=== PATIENT | female | born 1955 | race Caucasian/White ===

== ENCOUNTER 2018-08-25 13:19 | Outpatient (CLI) | payer OTHER ==
--- NOTE | 2018-08-25 14:09 | MMO ---
Bilateral MAMMO Bilat Screen [facility]. CLINICAL HISTORY: Patient is 62 years old and is seen for screening. The patient has no family history of breast cancer. The patient has no personal history of cancer. The patient has a history of left Stereotatic Biopsy in March, - benign, left Ultrasound Guided Core Biopsy in 2008 - benign and bilateral Breast reduction in 2002. VIEWS: The views performed were: bilateral craniocaudal with tomosynthesis and bilateral mediolateral oblique with tomosynthesis. FILMS COMPARED: The present examination has been compared to prior imaging studies performed at [facility] on 03/23/2008, 09/05/2008 and 03/20/2009, and at [facility] on 05/10/2005, 11/20/2005 and 01/19/2007. MAMMOGRAM FINDINGS: There are scattered fibroglandular densities. There are benign appearing calcifications seen in both breasts. There are also vascular calcifications. There are no suspicious masses, suspicious calcifications, or new areas of architectural distortion. IMPRESSION: THERE IS NO MAMMOGRAPHIC EVIDENCE OF MALIGNANCY. A ROUTINE FOLLOW-UP MAMMOGRAM IN 1 YEAR IS RECOMMENDED. THE RESULTS OF THIS EXAM WERE SENT TO THE PATIENT. ACR BI-RADS Category 2 - Benign finding MAMMOGRAPHY NOTE: 1. A negative mammogram report should not delay a biopsy if a dominant of clinically suspicious mass is present. 2. Approximately 10% to 15% of breast cancers are not detected by mammography. 3. Adenosis and dense breasts may obscure an underlying neoplasm.
--- NOTE | 2018-08-25 15:00 | BD ---
BONE DENSITOMETRY USING DEXA: Date: 08/25/18 HISTORY: Postmenopausal screening for osteoporosis. FINDINGS: Lumbar Spine: BMD (g/cm2) L1 0.587 T-Score: -3.7 Z-Score: -2.2 L2 0.615 T-Score: -3.8 Z-Score: -2.2 L3 0.650 T-Score: -3.9 Z-Score: -2.3 L4 0.827 T-Score: -2.1 Z-Score: -0.4 L1-L4 0.678 T-Score: -3.4 Z-Score: -1.8 Femoral Neck: 0.458 T-Score: -3.5 Z-Score: -2.1 Total Femur: 0.573 T-Score: -3.0 Z-Score: -1.9 IMPRESSION: Osteoporosis. POS: [facility]
== END 2018-08-25 13:20 | disposition home or self-care (01) ==
LOC: BICMAMMO 13:19
PROVIDERS: ATTEND Family Medicine
DX: Z12.31 Encounter for screening mammogram for malignant neoplasm of breast (principal); Z13.820 Encounter for screening for osteoporosis; M81.0 Age-related osteoporosis without current pathological fracture
CPT/HCPCS: 77063; 77067; 77080

== ENCOUNTER 2019-10-19 09:19 | Outpatient (CLI) | payer OTHER ==
--- NOTE | 2019-10-19 09:54 | BD ---
EXAM: DEXA bone density examination HISTORY: 63-year-old postmenopausal female for screening COMPARISON: None FINDINGS: L1--bone mineral density 0.675 g/sq cm; T score -2.9 L2--bone mineral density 0.646 g/sq cm; T score -2.5 L3--bone mineral density 0.738 g/sq cm; T score -3.1 L4--bone mineral density 0.907 g/sq cm; T score -1.4 Total L1-L4--bone mineral density 0.949 g/sq cm; T score -2.7 Left femoral neck--bone mineral density0.503; T score -3.1 Total proximal left femur--bone mineral density 0.616; T score -2.7 IMPRESSION: Osteoporosis. When compared to the prior examination, the bone density in the hip has inc reased approximately 10% and the bone density in the hip is increased approximately 7%.
--- NOTE | 2019-10-19 10:05 | MMO ---
Bilateral MAMMO Bilat Screen [facility]. CLINICAL HISTORY: Patient is 63 years old and is seen for screening. The patient has no family history of breast cancer. The patient has no personal history of cancer. The patient has a history of left Stereotatic Biopsy in March, - benign, left Ultrasound Guided Core Biopsy in 2008 - benign and bilateral Breast reduction in 2002. VIEWS: The views performed were: bilateral craniocaudal with tomosynthesis and bilateral mediolateral oblique with tomosynthesis. FILMS COMPARED: The present examination has been compared to prior imaging studies performed at [facility] on 07/06/2015 and 10/22/2016, and at [facility] on 03/20/2009 and 08/25/2018. This study has been interpreted with the assistance of computer-aided detection. MAMMOGRAM FINDINGS: There are scattered fibroglandular densities. There are stable benign appearing calcifications seen in both breasts. There are no suspicious masses, suspicious calcifications, or new areas of architectural distortion. IMPRESSION: THERE IS NO MAMMOGRAPHIC EVIDENCE OF MALIGNANCY. A ROUTINE FOLLOW-UP MAMMOGRAM IN 1 YEAR IS RECOMMENDED. THE RESULTS OF THIS EXAM WERE SENT TO THE PATIENT. ACR BI-RADS Category 2 - Benign finding MAMMOGRAPHY NOTE: 1. A negative mammogram report should not delay a biopsy if a dominant of clinically suspicious mass is present. 2. Approximately 10% to 15% of breast cancers are not detected by mammography. 3. Adenosis and dense breasts may obscure an underlying neoplasm. Reported by: LEO SIERRA MD Electonically Signed: [id number]
== END 2019-10-19 09:20 | disposition home or self-care (01) ==
LOC: BICMAMMO 09:19
PROVIDERS: ATTEND Internal Medicine Rheumatology
DX: Z12.31 Encounter for screening mammogram for malignant neoplasm of breast (principal); M81.0 Age-related osteoporosis without current pathological fracture; Z91.89 Other specified personal risk factors, not elsewhere classified; Z98.890 Other specified postprocedural states
CPT/HCPCS: 77063; 77067; 77080

== ENCOUNTER 2020-12-12 09:51 | Outpatient (CLI) | payer OTHER, MEDICARE | END 2020-12-12 09:52 | disposition home or self-care (01) | LOC: BICMAMMO 09:51 | PROVIDERS: ATTEND Nurse Practitioner Family | DX: Z12.31 Encounter for screening mammogram for malignant neoplasm of breast (principal); M81.0 Age-related osteoporosis without current pathological fracture; Z91.89 Other specified personal risk factors, not elsewhere classified; Z98.82 Breast implant status | CPT/HCPCS: 77063; 77067; 77080 ==

== ENCOUNTER 2021-12-27 13:40 | Outpatient (CLI) | payer MEDICARE | END 2021-12-27 13:41 | disposition home or self-care (01) | LOC: BICMAMMO 13:40 | PROVIDERS: ATTEND Nurse Practitioner Family | DX: Z12.31 Encounter for screening mammogram for malignant neoplasm of breast (principal); M81.0 Age-related osteoporosis without current pathological fracture; Z98.890 Other specified postprocedural states; Z91.89 Other specified personal risk factors, not elsewhere classified | CPT/HCPCS: 77063; 77067; 77080 ==

== ENCOUNTER 2022-05-22 06:52 | Outpatient (CLI) | payer MEDICARE | END 2022-05-22 06:53 | disposition home or self-care (01) | LOC: BICULT 06:52 | PROVIDERS: ATTEND Nurse Practitioner Family | DX: R59.0 Localized enlarged lymph nodes (principal) | CPT/HCPCS: 76536 ==

== ENCOUNTER 2022-06-28 07:47 | Outpatient (CLI) | payer MEDICARE ==
[2022-06-28] MEDS ORDERED: Iopamidol 370 76% 100 ML VIAL ONE (12:25)
== END 2022-06-28 07:48 | disposition home or self-care (01) ==
LOC: CT 07:47
PROVIDERS: ATTEND Physician Assistant Medical
DX: R10.84 Generalized abdominal pain (principal); K59.00 Constipation, unspecified; R11.0 Nausea; K57.32 Diverticulitis of large intestine without perforation or abscess without bleeding
CPT/HCPCS: 74177; 82565; Q9967

== ENCOUNTER 2022-07-01 20:01 | Inpatient (IN) | payer MEDICARE ==
[2022-07-01 20:21] LABS: #Eosinphils 0.1 thou/uL (0.0-0.7); #Monocytes 1.2 thou/uL (0.11-0.59); %Basophils 0.2 % (0.0-1.0); %Eosinophils 0.5 % (0.0-10.0); %Lymphocytes 6.8 % (21.0-51.0); %Monocytes 7.8 % (0.0-10.0); %Neutrophils 84.8 % (42.0-75.0); Hemoglobin 14.1 g/dL (12.0-16.0); Mean Corpuscular HGB CONC 33.2 g/dL (32.0-36.0); Mean Corpuscular Volume 93.6 fl (78.0-98.0); Mean Platelet Volume 6.9 fL (7.4-10.4); Platelet Count 581 10x3/uL (130-400); RBC Distribution Width 10.9 % (11.5-14.5); Red Blood Cell (RBC) Count 4.55 mill/uL (4.20-5.40); White Blood Cell (WBC) Count 15.4 10x3/uL (4.8-10.8)
[2022-07-01 20:41] LABS: ALT (SGPT) 10 U/L (8-55); AST (SGOT) 13 U/L (5-34); Albumin 4.1 g/dL (3.4-4.8); Alkaline Phosphatase 81 U/L (40-110); Anion Gap 21 mmol/L (10-20); BUN (Urea Nitrogen) 11 mg/dL (9.8-20.1); Bilirubin, Total 0.6 mg/dL (0.2-1.2); Calc. Creatinine Clearance 0 mL/min (70-130); Calcium 9.5 mg/dL (7.8-10.44); Carbon Dioxide 20 mmol/L (23-31); Chloride 97 mmol/L (98-107); Estimated GFR 94; Globulin 3.9 g/dL (2.4-3.5); Glucose 149 mg/dL (80-115); Lipase 13 U/L (8-78); Potassium 3.6 mmol/L (3.5-5.1); Sodium 134 mmol/L (136-145)
[2022-07-01] MEDS ORDERED: Morphine 4 MG/ML VIAL ONE (21:19)
[2022-07-01] MEDS ORDERED: Ondansetron PF 4 MG/2 ML Vial ONE (21:19)
[2022-07-01] MEDS ORDERED: Vancomycin 1 GM/200 ML (FROZEN) BAG ONE (22:02)
[2022-07-01 22:07] LABS: Bilirubin Negative (Negative); Blood, Urine Negative (Negative); Clarity Clear (Clear); Glucose, Urine (Dipstick) Normal (Negative); Ketone, Urine Greater than 150 mg/dL (Negative); Leukocyte 75 Leu/uL (Negative); Nitrite Negative (Negative); Protein, Urine (Dipstick) 70 mg/dL (Neg-Trace); RBC/HPF 0-3 HPF (0-3); Specific Gravity, Urine 1.031 (1.002-1.036); Squamous Epithelial 0-3 HPF (0-3); Urobilinogen 3 mg/dL (Less than 2); pH, Urine 5.5 (5.0-9.0)
[2022-07-01 22:10] LABS: Bacteria/HPF 1+ HPF (None Seen)
[2022-07-01] MEDS ORDERED: Lactated Ringer's 1,000 ML IV SCH (23:15)
[2022-07-01] MEDS ORDERED: Sodium Chloride 0.9% 1,000 ML IV SCH (23:30)
[2022-07-02] MEDS ORDERED: cefTRIAXone\\ROCEPHIN 1 GM VIAL ONE (01:11)
[2022-07-02] MEDS: cefTRIAXone\\ROCEPHIN 1 GM in Sodium Chloride 0.9% 100 ML IVPB SCH ×2 (01:21→23:38)
[2022-07-02] MEDS ORDERED: metroNIDAZOLE 500 MG/100 ML BAG ONE ×2 (01:49→07:30)
[2022-07-02] MEDS: metroNIDAZOLE 500 MG in Premix Bag 1 BAG IVPB SCH ×3 (02:09→17:36)
[2022-07-02] MEDS ORDERED: Morphine 4 MG/ML VIAL ONE (04:17)
[2022-07-02 04:19] LABS: #Basophils 0.1 thou/uL (0.0-0.2); #Eosinphils 0.1 thou/uL (0.0-0.7); #Lymphocytes 1.4 thou/uL (1.20-3.40); #Monocytes 1.3 thou/uL (0.11-0.59); #Neutrophils 7.9 thou/uL (1.40-6.50); %Basophils 0.8 % (0.0-1.0); %Eosinophils 1.2 % (0.0-10.0); %Lymphocytes 12.5 % (21.0-51.0); %Monocytes 12.4 % (0.0-10.0); %Neutrophils 73.1 % (42.0-75.0); Hemoglobin 11.5 g/dL (12.0-16.0); Mean Corpuscular HGB CONC 33.2 g/dL (32.0-36.0); Mean Corpuscular Volume 93.4 fl (78.0-98.0); Platelet Count 505 10x3/uL (130-400); RBC Distribution Width 10.9 % (11.5-14.5); Red Blood Cell (RBC) Count 3.72 mill/uL (4.20-5.40); White Blood Cell (WBC) Count 10.8 10x3/uL (4.8-10.8)
[2022-07-02] MEDS: Morphine 4 MG/ML VIAL SLOW IVP PRN ×2 (04:21→15:56)
[2022-07-02 04:39] LABS: Anion Gap 13 mmol/L (10-20); BUN (Urea Nitrogen) 8 mg/dL (9.8-20.1); Calc. Creatinine Clearance 0 mL/min (70-130); Calcium 8.3 mg/dL (7.8-10.44); Carbon Dioxide 21 mmol/L (23-31); Chloride 104 mmol/L (98-107); Estimated GFR 102; Glucose 81 mg/dL (80-115); Potassium 3.2 mmol/L (3.5-5.1); Sodium 135 mmol/L (136-145)
[2022-07-02 05:09] LABS: Bilirubin Negative (Negative); Blood, Urine Negative (Negative); Clarity Clear (Clear); Glucose, Urine (Dipstick) Normal (Negative); Ketone, Urine 150 mg/dL (Negative); Leukocyte Negative Leu/uL (Negative); Nitrite Negative (Negative); Protein, Urine (Dipstick) 20 mg/dL (Neg-Trace); Specific Gravity, Urine 1.029 (1.002-1.036)
[2022-07-02] MEDS ORDERED: metroNIDAZOLE 500 MG in Premix Bag 1 BAG IVPB SCH (06:00)
[2022-07-02] MEDS: Levothyroxine Sodium 75 MCG TAB PO SCH (06:20)
[2022-07-02] MEDS ORDERED: Lisinopril 10 MG TAB ONE (07:28)
[2022-07-02] MEDS ORDERED: Ondansetron PF 4 MG/2 ML Vial ONE (07:29)
[2022-07-02] MEDS: Ondansetron PF 4 MG/2 ML Vial IVP PRN (07:39)
[2022-07-02] MEDS ORDERED: PRUCALOPRIDE SUCCINATE 2 MG PO SCH (08:00)
[2022-07-02] MEDS: Lisinopril 10 MG TAB PO SCH (08:05)
[2022-07-02] MEDS ORDERED: Potassium Chloride 20 MEQ TAB PO SCH (09:00)
[2022-07-02] MEDS ORDERED: Iopamidol-370 76% 500 ML 1 ML ONE (09:24)
[2022-07-02] MEDS ORDERED: Potassium Chloride 20 MEQ TAB ONE (09:51)
[2022-07-02] MEDS: Lactated Ringer's 1,000 ML IV SCH ×2 (10:54→18:47)
[2022-07-02 15:38] VITALS: BMI 27.1
[2022-07-02] MEDS ORDERED: Acetaminophen 325 MG TAB PO PRN (20:29)
[2022-07-03] MEDS: metroNIDAZOLE 500 MG in Premix Bag 1 BAG IVPB SCH ×3 (00:29→16:42)
[2022-07-03] MEDS: Lactated Ringer's 1,000 ML IV SCH ×3 (04:21→23:55)
[2022-07-03 06:39] LABS: #Eosinphils 0.3 thou/uL (0.0-0.7); #Neutrophils 6.2 thou/uL (1.40-6.50); %Basophils 0.1 % (0.0-1.0); %Eosinophils 3.7 % (0.0-10.0); %Lymphocytes 11.3 % (21.0-51.0); %Monocytes 12.3 % (0.0-10.0); %Neutrophils 72.7 % (42.0-75.0); Hemoglobin 12.2 g/dL (12.0-16.0); Mean Corpuscular HGB CONC 32.5 g/dL (32.0-36.0); Mean Corpuscular Hemoglobin 30.9 pg (27.0-31.0); Mean Platelet Volume 7.1 fL (7.4-10.4); Platelet Count 522 10x3/uL (130-400); Red Blood Cell (RBC) Count 3.94 mill/uL (4.20-5.40); White Blood Cell (WBC) Count 8.5 10x3/uL (4.8-10.8)
[2022-07-03] MEDS: Levothyroxine Sodium 75 MCG TAB PO SCH (06:42)
[2022-07-03 07:11] LABS: Anion Gap 14 mmol/L (10-20); BUN (Urea Nitrogen) 4 mg/dL (9.8-20.1); Calc. Creatinine Clearance 114 mL/min (70-130); Calcium 8.7 mg/dL (7.8-10.44); Carbon Dioxide 23 mmol/L (23-31); Chloride 105 mmol/L (98-107); Estimated GFR 102; Glucose 78 mg/dL (80-115); Potassium 3.6 mmol/L (3.5-5.1); Sodium 138 mmol/L (136-145)
[2022-07-03] MEDS: Lisinopril 10 MG TAB PO SCH (08:29)
[2022-07-03] MEDS ORDERED: Glycerin Adult Supp. (24 ct jar) PR SCH (09:45)
[2022-07-03] MEDS: Morphine 4 MG/ML VIAL SLOW IVP PRN ×3 (10:34→19:13)
[2022-07-03] MEDS: cefTRIAXone\\ROCEPHIN 1 GM in Sodium Chloride 0.9% 100 ML IVPB SCH (23:53)
[2022-07-03] MEDS: Ondansetron PF 4 MG/2 ML Vial IVP PRN (23:56)
[2022-07-04] MEDS: Morphine 4 MG/ML VIAL SLOW IVP PRN ×2 (00:02→09:10)
[2022-07-04] MEDS: metroNIDAZOLE 500 MG in Premix Bag 1 BAG IVPB SCH ×3 (00:07→17:34)
[2022-07-04] MEDS: Levothyroxine Sodium 75 MCG TAB PO SCH (06:30)
[2022-07-04 07:20] LABS: Hemoglobin 11.6 g/dL (12.0-16.0); Mean Corpuscular Hemoglobin 30.9 pg (27.0-31.0); Mean Corpuscular Volume 93.6 fl (78.0-98.0); Mean Platelet Volume 7.3 fL (7.4-10.4); Platelet Count 535 10x3/uL (130-400); Red Blood Cell (RBC) Count 3.74 mill/uL (4.20-5.40); White Blood Cell (WBC) Count 12.5 10x3/uL (4.8-10.8)
[2022-07-04 07:36] LABS: Anion Gap 15 mmol/L (10-20); BUN (Urea Nitrogen) Less than 4 mg/dL (9.8-20.1); Calc. Creatinine Clearance 117 mL/min (70-130); Calcium 8.6 mg/dL (7.8-10.44); Carbon Dioxide 24 mmol/L (23-31); Chloride 100 mmol/L (98-107); Estimated GFR 102; Glucose 92 mg/dL (80-115); Potassium 3.2 mmol/L (3.5-5.1); Sodium 136 mmol/L (136-145)
[2022-07-04] MEDS: Lisinopril 10 MG TAB PO SCH (08:55)
[2022-07-04] MEDS ORDERED: Ketorolac Tromethamine 30 MG/ML VIAL IVP SCH (10:00)
[2022-07-04 10:12] LABS: Band 29 % (5-11); Lymphocytes 5 % (21-51); MDiff Complete? YES; Monocytes 2 % (0-10); Neutrophil 63 % (42-75); Platelet Morphology Comment Appears Increased; RBC Morphology Normal; Reactive Lymphocytes 1 % (0-10)
[2022-07-04] MEDS: Lactated Ringer's 1,000 ML IV SCH (11:00)
[2022-07-04] MEDS: Dicyclomine 10 MG CAP PO SCH ×2 (12:47→17:32)
[2022-07-04] MEDS ORDERED: Potassium Chloride 20 MEQ TAB PO SCH (17:00)
[2022-07-04 17:54] VITALS: BP 147/80; TEMP 98
== END 2022-07-04 18:41 | disposition home or self-care (01) | DRG 392 ==
LOC: ERS 20:01 → ERHOLD 22:16 → T4-B 07-02 13:14 → OBSVTOIN 07-03 11:05
PROVIDERS: ADMIT Student in an Organized Health Care Education/Training Program; ATTEND Emergency Medicine
DX: K57.32 Diverticulitis of large intestine without perforation or abscess without bleeding (principal); Z20.822 Contact with and (suspected) exposure to COVID-19; E03.9 Hypothyroidism, unspecified; I10 Essential (primary) hypertension; K21.9 Gastro-esophageal reflux disease without esophagitis; K59.00 Constipation, unspecified; E87.6 Hypokalemia; R01.1 Cardiac murmur, unspecified; Z87.01 Personal history of pneumonia (recurrent); Z88.0 Allergy status to penicillin; Z88.2 Allergy status to sulfonamides; Z79.899 Other long term (current) drug therapy; Z79.890 Hormone replacement therapy; Z80.7 Family history of other malignant neoplasms of lymphoid, hematopoietic and related tissues; Z82.49 Family history of ischemic heart disease and other diseases of the circulatory system; Z90.49 Acquired absence of other specified parts of digestive tract
CPT/HCPCS: 36415; 74177; 80048; 80053; 81001; 81003; 83605; 83690; 85025; 87040; 96361; 96365; 96367; 96375; 96376; G0378; J0696; J2270; J2405; J3370-JW; J3490; J7050; J7120; Q9967; U0003; U0005